=== PATIENT | female | born 1960 | race Caucasian/White ===

== ENCOUNTER 2019-08-24 17:27 | Emergency (ER) | payer OTHER, SELFPAY ==
[2019-08-24 17:28] VITALS: BP 120/63; PULSE 92; RESP 18; TEMP 36.8; O2SAT 97; BMI 33.5
--- NOTE | 2019-08-24 19:31 | ED.DCSUM_ITS ---
- ER Visit Summary Date of Service: 08/24/19 Chief Complaint: Elevated blood sugar History of Present Illness: The patient is a 59 F presenting with elevated blood sugar. Patient states that she has been having urinary frequency. She denies dysuria. She has had some mild fatigue. She denies other complaints. She went to urgent care today they did a urinalysis which showed no infection, elevated glucose. Her BGT was 492. She has diet-controlled diabetes. Her family physician is no longer practicing. Physical Examination: Vitals are stable. Patient is afebrile. Alert no acute distress. HEENT exam is unremarkable. Neck is supple. Lungs are clear and equal bilaterally. Heart is regular rate and rhythm. Abdomen is soft nontender nondistended. Extremities are unremarkable. Skin is warm and dry. No focal neurologic deficit. Remainder of exam is unremarkable. Emergency Department Course and Treatment: Patient was given IV fluids. CBC, chemistries unremarkable other than glucose 338. Ketones negative. Patient was given insulin subcutaneously. Repeat BGT 249. Patient states she was previously on metformin. She was given a prescription for metformin and advised to follow-up with her new primary care physician. Advised return to ED for worsening complaints. Disposition: Discharge home Impression: Hyperglycemia This note was generated with [employer] dictation software. It may contain incorrect words, spelling, and punctuation that were not noted in review of the chart prior to signing ED Disposition - Plan for ED Patient: Instructions: ED Diabetic Hyperglycemia, HYPERGLYCEMIA, NEW ONSET (Diabetes Suspected) Prescriptions: metFORMIN HCl [Glucophage] 500 mg PO BIDCM #60 tab Prescription Printed Referrals: Oli Aponte DO [COURTESY STAFF PHYSICIAN] -
[2019-08-24 19:40] LABS: Absolute Lymphocyte Count 1.94 X10^3/uL (0.83-4.51); Absolute Neutrophil Count 4.5 X10^3/uL (2.0-7.7); Basophil# 0.02 X10^3/uL; Basophil% 0.3 % (0-1); Eosinophil# 0.26 X10^3/uL; Eosinophils% 3.6 % (0-5); Hematocrit 46.4 % (37-47); Hemoglobin 16.2 g/dL (12.0-15.0); Lymphocyte # 1.94 X10^3/ul (4.0); Lymphocyte % 26.6 % (19-41); Mean Corp Hgb Conc 34.9 g/dL (32-36); Mean Corpuscular Hgb 29.3 pg (27.0-32.0); Mean Corpuscular Volume 84.1 fL (81-99); Mean Platelet Vol. 10.2 fl (6.2-12.0); Monocyte# 0.56 X10^3/uL; Monocyte% 7.7 % (0-10); NRBC Flagged by Analyzer 0 % (0-5); Neutrophil # 4.47 X10^3/uL (2.7-7.7); Neutrophil % 61.3 % (47-70); Platelet Count 216 K/mm3 (150-450); RBC Distribution Width CV 11.7 % (11.6-14.6); RBC Distribution Width SD 35.2 fl (35.1-43.9); Red Blood Count 5.52 M/mm3 (4.2-5.4); White Blood Count 7.3 K/mm3 (4.4-11.0)
[2019-08-24 19:48] LABS: Anion Gap 6 (5-15); BUN 18 mg/dL (7-18); BUN/Creat Ratio 22.4 RATIO (10-20); Calcium,Total 9.4 mg/dL (8.5-10.1); Chloride 103 mmol/L (98-107); EST Glomerular Filtration Rate 77 mL/min (>60); Est Glom Filt Rate - Afr Amer 93 mL/min (>60); Estimated Creatinine Clearance 67.29 ml/min; Glucose 338 mg/dL (74-106); Potassium 3.8 mmol/L (3.5-5.1); Sodium Level 136 mmol/L (136-145)
[2019-08-24] MEDS: 0.9% Normal Saline 1,000 ML 999 ML IV ×2 (19:56→20:27)
[2019-08-24] MEDS: Insulin Lispro 100 UNIT/ML INSULN.PEN 10 UNIT SC (20:27)
[2019-08-24 20:30] VITALS: BP 145/76; PULSE 83; RESP 16; O2SAT 98
[2019-08-24 21:11] LABS: Bedside Glucose 249 mg/dL (70-110)
--- NOTE | 2019-08-24 21:28 | ED.DEP ---
ED Disposition - Plan for ED Patient: Instructions: ED Diabetic Hyperglycemia, HYPERGLYCEMIA, NEW ONSET (Diabetes Suspected) Prescriptions: RX: metFORMIN HCl [Glucophage] 500 mg PO BIDCM #60 tablet Referrals: Oli Aponte DO [COURTESY STAFF PHYSICIAN] -
[2019-08-24 21:41] VITALS: BP 138/82; PULSE 76; RESP 16; O2SAT 97
== END 2019-08-24 21:42 | disposition home or self-care (01) ==
PROVIDERS: Emergency Provider Emergency Medicine
DX: E11.65 Type 2 diabetes mellitus with hyperglycemia (principal)
CPT/HCPCS: 80048; 82009; 82962; 85025; 96360; 96361; 99283; J7030; A4216

== ENCOUNTER 2020-10-29 09:37 | Emergency (ER) | payer OTHER, SELFPAY ==
[2020-10-29 09:37] VITALS: BP 171/105; PULSE 101; RESP 18; TEMP 36.1; O2SAT 99; BMI 35.9
--- NOTE | 2020-10-29 09:51 | EKG12_ITS ---
Test Reason : CP Blood Pressure : / mmHG Vent. Rate : 096 BPM Atrial Rate : 096 BPM P-R Int : 172 ms QRS Dur : 100 ms QT Int : 348 ms P-R-T Axes : 057 014 049 degrees QTc Int : 439 ms Normal sinus rhythm Normal ECG Confirmed by BOUCHRA DE LUNA, DARELL ([id number]), fashion editor MAGGIE FLORES ([id number]) on 10/30/2020 11:10:37 AM Referred By: MÓNICA Confirmed By:DARELL SHOOK MD
--- NOTE | 2020-10-29 09:52 | ED.DCSUM_ITS ---
History of Present Illness Chief Complaint: Shortness of Breath Informant: Patient Onset: Weeks - 2 Timing: Intermittent Narrative: Presents 2 weeks intermittent chest pain pain in the back. No pain down the arms. States same time dealing with sinus congestion with postnasal drip. Reports dyspnea and cough. No fevers. No headache. No loss of taste or smell. Saw PCP office a week ago reports had a EKG that was normal was told is muscul oskeletal by the [employer]ONT [employer]ENT. States symptoms are worsening. Denies exertional dyspnea or tightness. This morning had 2 bouts of loose stools. No vomiting. History of diabetes on Metformin. Mother with GA in her 40s. Patient reports had abnormal stress test last summer followed up [facility] with cardiology reports what she describes as a CT coronaries for which she report was normal with no calcifications reported. She states she is started on cholesterol medicines prior to this test by the smoking tobacco packer hand. She denies any tobacco history. Denies any Covid exposures. No Covid infection in the past. Denies recent travel, surgeries, or immobilizations. No history of PE or DVT. Prior similar symptoms: Yes Past Medical History - Allergies and Home Meds Allergies/Adverse Reactions: Allergies No Known Allergies Allergy (Verified 08/24/19 17:29) Primary Care Physician: Care Physician,No Primary [NON-STAFF] - Past Medical History: - - Type 2 diabetes Smoking Status: Never smoker Review of Systems General: Denies: Chills, Fever, Sweats Eyes: Denies: Visual changes - bilaterally, Diplopia ENT: Reports: - - Sinus congestion. Denies: Rhinorrhea, Sore throat Cardiovascular: Reports: Chest pain. Denies: Palpitations Respiratory: Reports: Dyspnea, Cough. Denies: Dyspnea on exertion Gastrointestinal: Reports: Diarrhea. Denies: Abdominal pain, Nausea, Vomiting, Melena, Hematochezia Genitourinary: Denies: Dysuria, Hematuria, Frequency Musculoskeletal: Denies: Back pain, Extremity Pain Skin: Denies: Rash, Wounds Neurological: Denies: Headache, Weakness, Numbness Physical Exam Vital Signs/Narrative: Vital Signs Temp Pulse Resp BP Pulse Ox 10/29/20 09:37 96.9 F L 101 H 18 171/105 H 99 Inital Vital Signs reviewed: Yes General: Well nourished, Well developed, No Acute Distress Head: Normocephalic, Atraumatic Eyes: Perrl, EOMI ENT: Moist mucous membranes, No rhinorrhea Neck: Supple, Nontender Cardiovascular: Regular rate, Regular rhythm, No murmurs Respiratory: No distress, CTA bilaterally, Chest nontender Abdomen: Soft, Nontender, Nondistended, Normal bowel sounds Back: Nontender, Normal Inspection Extremities: Nontender, No edema Skin: Normal color, No rash Neurological: Alert, Oriented x3, Cranial nerves II-XII grossly intact, Normal Strength, Normal Sensation Psychological: Normal affect, Normal Mood Diagnostic/Tx/Re-eval Chest X-Ray - ED: 1 View, Read by ED Physician, Read by Radiologist, No Acute Disease Clinical Impression(s) from Imaging Studies Chest X-Ray 10/29/20 10:10 IMPRESSION: Normal x-ray examination of the chest. Electronically Signed: Ramana Rhoades MD at 10:37 EST Tel , Service support , Abnormal Lab Results 10/29/20 10/29/20 10:03 10:03 WBC 9.5 RBC 5.40 Hgb 15.8 H Hct 45.9 MCV 85.0 MCH 29.3 MCHC 34.4 RDW Std Deviation 35.8 RDW Coeff of Randy 11.8 Plt Count 225 MPV 10.2 Immature Gran % (Auto) 0.400 Neut % (Auto) 72.0 H Lymph % (Auto) 20.1 Beauregard % (Auto) 5.2 Eos % (Auto) 1.9 Baso % (Auto) 0.4 Absolute Neuts (auto) 6.9 Absolute Lymphs (auto) 1.92 Nucleated RBC % 0 Sodium 136 Potassium 4.6 Chloride 101 Carbon Dioxide 26.0 Anion Gap 9 BUN 15 Creatinine 0.62 Estim Creat Clear Calc 82.28 Est GFR (MDRD) Af Amer 126 Est GFR (MDRD) Non-Af 104 BUN/Creatinine Ratio 24.2 H Glucose 296 H Calcium 10.0 Troponin I < 0.015 - EKG Initial EKG Interpretation: Sinus Rhythm - Sinus rate of 96, no ST or T wave changes. QTc 439. - Medical Decision Making Patient nontoxic currently asymptomatic. EKG sinus rhythm with no acute changes. Chest x-ray 1 view reviewed by myself and read by radiology notes no acute changes. Cardiac work-up negative. Elevated glucose of 296 with a normal anion gap. Initial heart rate on triage 101 in the 90s on my evaluation and on EKG. She denies any exertional dyspnea or chest tightness, low suspicion for PE. With her cough sinus congestion loose stools today, Covid testing obtained in the ED returned negative. Her pulse ox is 99%. Discussed the possibility of false negative with the patient. She understands. She is more reassured. In addition, discussed heart pathway guideline with the patient with 2% cardiac risks 3 months time. She understands this. She declined 3-hour redraw for further evaluation. She also reported recently seen her PCP office a week ago was placed on anxiety medicines of Prozac and what sounds like a benzodiazepine to take as needed. She mentioned anxiety in the office. She has not taken this medication. She would like to try reflux medications for which omeprazole was sent to her pharmacy. She will discuss with her primary team to hold on the anxiety medicines at this time. She has appointment with her smoking tobacco packer hand in the near future. She was reporting palpitation and racing heart symptoms. She is drinks 2 coffees a day. Discussed decreasing refraining from this and avoiding caffeine products and monitoring symptoms. Discussed possible Holter monitor as an outpatient. Discussed bronchitis symptoms with no infiltrative findings. Strict return precautions. Patient is being discharged under pandemic conditions under declared global, national and state disaster activation, with limited medical resources. Patient and community understands this. Results discussed in layman's terms to the patient satisfaction. All questions answered in layman's terms. Patient understands importance of follow-up care as directed. Patient has been instructed to return to the ED immediately if new symptoms, problems, or questions occur. We mutually agree with the plan of disposition. The patient understand that they may call or return with any questions or concerns at any time. ED Disposition - Plan for ED Patient: Disposition: Home or Assisted Living Diagnosis: Chest pain, Bronchitis, Palpitations Instructions: ED Chest Pain, Uncertain Cause, ED Bronchitis, No Antibiotic (Adult), ED Palpitations Prescriptions: Omeprazole 40 mg PO DAILY #30 capsule. [facility]: [facility] [place] Referrals: Care Physician,No Primary [NON-STAFF] - Additional Instructions: Decrease your caffeine intake. Start reflux medications. Discussed with your PCP about holding your anxiety medications. Keep your appointment with your smoking tobacco packer hand.
[2020-10-29] MEDS: Aspirin 81 MG TAB.CHEW 324 MG PO (10:08)
[2020-10-29 10:09] LABS: Absolute Lymphocyte Count 1.92 X10^3/uL (0.83-4.51); Absolute Neutrophil Count 6.9 X10^3/uL (2.0-7.7); Basophil# 0.04 X10^3/uL; Basophil% 0.4 % (0-1); Eosinophil# 0.18 X10^3/uL; Eosinophils% 1.9 % (0-5); Hematocrit 45.9 % (37-47); Hemoglobin 15.8 g/dL (12.0-15.0); Lymphocyte # 1.92 X10^3/ul (4.0); Lymphocyte % 20.1 % (19-41); Mean Corp Hgb Conc 34.4 g/dL (32-36); Mean Corpuscular Hgb 29.3 pg (27.0-32.0); Mean Platelet Vol. 10.2 fl (6.2-12.0); Monocyte% 5.2 % (0-10); NRBC Flagged by Analyzer 0 % (0-5); Neutrophil # 6.85 X10^3/uL (2.7-7.7); Platelet Count 225 K/mm3 (150-450); RBC Distribution Width CV 11.8 % (11.6-14.6); RBC Distribution Width SD 35.8 fl (35.1-43.9); White Blood Count 9.5 K/mm3 (4.4-11.0)
--- NOTE | 2020-10-29 10:10 | RAD_ITS ---
STUDY: X-RAY CHEST REASON FOR EXAM: Female, 60 years old. chest pain TECHNIQUE: Single AP portable view of the chest. COMPARISON: None. FINDINGS: The lungs are clear and expanded. There is no demonstrated pleural abnormality. Normal size heart. Normal mediastinum and seferino. Normal visualized pulmonary arteries. Normal visualized aortic arch and descending thoracic aorta. Normal visualized thoracic spine. Normal visualized ribs, clavicles, and shoulders. There is no demonstrated abnormality of the visualized soft tissue structures of the upper abdomen. RAD/Chest 1 View (Portable) IMPRESSION: Normal x-ray examination of the chest. Electronically Signed: Ramana Rhoades MD at 10:37 EST Tel , Service support ,
[2020-10-29 10:12] VITALS: BP 171/105; PULSE 101; RESP 18; TEMP 36.1; O2SAT 99
[2020-10-29 10:13] VITALS: O2SAT 99
[2020-10-29 10:15] VITALS: O2SAT 99
[2020-10-29 10:31] LABS: Anion Gap 9 (5-15); BUN 15 mg/dL (7-18); BUN/Creat Ratio 24.2 RATIO (10-20); Chloride 101 mmol/L (98-107); Creatinine, Serum 0.62 mg/dL (0.55-1.02); EST Glomerular Filtration Rate 104 mL/min (>60); Est Glom Filt Rate - Afr Amer 126 mL/min (>60); Estimated Creatinine Clearance 82.28 ml/min; Glucose 296 mg/dL (74-106); Potassium 4.6 mmol/L (3.5-5.1); Sodium Level 136 mmol/L (136-145)
[2020-10-29 11:05] VITALS: BP 168/83; PULSE 91; RESP 18; TEMP 36.2; O2SAT 97
== END 2020-10-29 11:23 | disposition home or self-care (01) ==
PROVIDERS: Emergency Provider Emergency Medicine; PCP Student in an Organized Health Care Education/Training Program
DX: R07.9 Chest pain, unspecified (principal); J40 Bronchitis, not specified as acute or chronic; R00.2 Palpitations; E11.9 Type 2 diabetes mellitus without complications; Z79.84 Long term (current) use of oral hypoglycemic drugs
CPT/HCPCS: 71045; 80048; 84484; 85025; 87426; 93005; 99285; A4216

== ENCOUNTER → 2021-07-30 16:25 | Outpatient (CLI) | payer OTHER, SELFPAY ==
[2021-08-05 16:18] LABS: HPV APTIMA, High Risk Negative (Negative)
== END ==
PROVIDERS: PCP Student in an Organized Health Care Education/Training Program; Visit Provider Obstetrics & Gynecology
DX: Z12.4 Encounter for screening for malignant neoplasm of cervix (principal)
CPT/HCPCS: 87624; 88175; G0145